=== PATIENT | male | born 1965 | race Caucasian/White ===

== ENCOUNTER 2021-12-09 07:51 | Outpatient (CLI) | payer OTHER, SELFPAY ==
--- NOTE | 2021-12-09 08:02 | ECG_ITS ---
Measurements Intervals [place] Rate: 61 P: 54 TX: 177 QRS: -28 QRSD: 112 T: 30 QT: 386 QTc: 391 Interpretive Statements SINUS RHYTHM BORDERLINE LEFT AXIS DEVIATION [QRS AXIS < -20] MODERATE INTRAVENTRICULAR CONDUCTION DELAY [110+ ms QRS DURATION] COMPARED TO ECG 11/07/2018 05:38:51 INTRAVENTRICULAR CONDUCTION DELAY NOW PRESENT Electronically Signed On 12-09-2021 14:03:39 CDT by Justice Fernandez M.D.
== END 2021-12-09 07:52 | disposition home or self-care (01) ==
PROVIDERS: PCP Family Medicine; Visit Provider Surgery
DX: K40.90 Unilateral inguinal hernia, without obstruction or gangrene, not specified as recurrent (principal); E78.00 Pure hypercholesterolemia, unspecified; Z01.818 Encounter for other preprocedural examination; R94.31 Abnormal electrocardiogram [ECG] [EKG]
CPT/HCPCS: 36415; 86850; 86900; 86901; 93005

== ENCOUNTER 2021-12-13 00:57 | Day surgery (SDC) | payer OTHER, SELFPAY ==
[2021-12-06 10:20] VITALS: BMI 27.0
--- NOTE | 2021-12-06 10:25 | PC.NURSE ---
Report to the Outpatient Waiting Room, entrance under the green pavilion located off [facility], at time 7:30 on date 12/13/21. Planned Procedure Time: 9:30. Time changes happen often and if your time is changed the preop area will call you the afternoon before. - You and your visitor will be asked to self-screen and do not enter if you have any COVID symptoms. - We encourage only one visitor and NO visitors under age 16 are allowed at this time. Your visitor will receive communication by the phone number that is given day of service. - The patient visitor is requested to social distance or may leave the building when not with patient due to restrictions. - A mask is required within the hospital. Patients may have clear liquids (water, carbonated beverages, clear teas, apple juice) until 3 hours prior to surgery with a maximum of 20 ounces. - No food from midnight until time of surgery Take the following medications with a SIP of water the morning of surgery: NONE Medications to discontinue per physician: N/A Date to take last dose: N/A Please no make-up, nail lithuanian, hairspray, perfume, deodorant, or body powder the day of surgery. No jewelry (including any body piercings) or valuables the day of surgery, leave them at home. Please take a shower or bath the night before, or the morning of, surgery with an antibacterial soap (HIBICLENS). Wear comfortable, loose fitting clothing. - Jewelry must be removed prior to entering the operating room. Rings and piercings that are not removed may be cut off. - The hospital will not accept responsibility for valuables. - Please leave all valuables, including medications, at home the day of surgery. If you are going home after surgery, a licensed bus van driver must drive you home. - NO public transportation without another adult. - We recommend that an adult stay with you for 24 hours following discharge. - We also recommend that you do not drive, make important decision, drink alcoholic beverages, or take any drugs that were not prescribed by your health care provider for at least 24 hours after your discharge time. Follow any additional instructions given to you from your surgeon. If you or anyone in your household have experienced Covid symptoms in the past week, please notify your surgeon or the nurse liaison at the phone number below for possible testing. Telephone instructions given to SANDIE ARGUELLES and asked if any additional questions and then verbalized understanding. Patient advised to call surgeon office or pre surgery nurse liaison [phone] if any additional questions.
--- NOTE | 2021-12-12 09:59 | WPDANESEPPF ---
Anes - Initial Pre Proc Eval Procedure: Operation Date: 12/13/21 09:30 Proposed Procedures p Laparoscopic Left Inguinal Hernia Repair with Mesh, Davinci Assisted - Brandon Catalan DO <Michael Alaniz MD - Last Filed: 12/16/21 10:45> Date/Time: 12/12/21 09:59 <Michael Alaniz MD - Last Filed: 12/16/21 10:45> Surgeon: Brandon Catalan DO <Michael Alaniz MD - Last Filed: 12/16/21 10:45> Pre Op Diagnosis: left inguinal hernia <Michael Alaniz MD - Last Filed: 12/16/21 10:45> Patient Data Age: 56 Gender: M Height: 1.8 m Weight: 88 kg <Michael Alaniz MD - Last Filed: 12/16/21 10:45> Allergies Allergy/AdvReac Type Severity Reaction Status Date / Time No Known Allergies Allergy Verified 12/13/21 08:11 <Michael Alaniz MD - Last Filed: 12/16/21 10:45> Home Medications Medication Instructions Recorded Confirmed Type atorvastatin 20 mg tablet (Lipitor) 20 mg PO DAILY 12/31/18 12/13/21 History fexofenadine-pseudoephedrine ER 1 tablet PO DAILY 12/31/18 12/13/21 History 180 mg-240 mg tablet,ext.release 24 hr (Madelin-D 24 Hour) finasteride 1 mg tablet 1 mg PO DAILY 05/10/20 12/13/21 History omeprazole 40 mg capsule,delayed 40 mg PO DAILY 05/10/20 12/13/21 History release hydrocodone 5 mg-acetaminophen 325 1 tablet PO Q4H PRN pain #10 tabs 12/13/21 Rx mg tablet <Michael Alaniz MD - Last Filed: 12/16/21 10:45> ECG: Date of Service: 12/09/21 Procedure(s): CA 12 lead EKG Accession Number(s): [id number] cc: ~ ? Measurements Intervals? [place]? Rate: ? 61 ? P:? 54 MD: ? 177? QRS:? -28 QRSD: ? 112? T:? 30 QT: ? 386? QTc:? 391? Interpretive Statements SINUS RHYTHM BORDERLINE LEFT AXIS DEVIATION [QRS AXIS < -20] MODERATE INTRAVENTRICULAR CONDUCTION DELAY [110+ ms QRS DURATION] COMPARED TO ECG 11/07/2018 05:38:51 INTRAVENTRICULAR CONDUCTION DELAY NOW PRESENT Electronically Signed On 12-09-2021 14:03:39 CDT by Justice Fernandez M.D. <Michael Alaniz MD - Last Filed: 12/16/21 10:45> Patient hx anesthesia problems: none <Khai Fernando MD - Last Filed: 12/13/21 08:39> Family hx anesthesia problems: none <Khai Fernando MD - Last Filed: 12/13/21 08:39> Results Review: All pre-operative results and documents have been reviewed as part of the pre-operative evaluation. <Michael Alaniz MD - Last Filed: 12/16/21 10:45> [facility] Past Medical History Medical History: Medical History BPH (benign prostatic hyperplasia) High cholesterol History of hemorrhoids ISABELLA (obstructive sleep apnea) Seasonal allergic rhinitis Vision loss <Michael Alaniz MD - Last Filed: 12/16/21 10:45> Surgical History Surgical History: Surgical History Amputated toe of right foot 4th digit H/O hand surgery H/O vasectomy S/P hemorrhoidectomy multiple hemorrhoid bandings S/P right inguinal hernia repair as a child <Michael Alaniz MD - Last Filed: 12/16/21 10:45> Family History Family History: Family History Mother Cancer Unknown Cancer Sibling Suicide and self-inflicted injury <Michael Alaniz MD - Last Filed: 12/16/21 10:45> Social History Social History: Social History Smoking status: Never smoker Alcohol intake: current Drinks per week: 21 Substance use: unknown Substance use type: does not use Gender identity (if verbalized by the patient): Male Spiritual care concerns: No <W
[2021-12-13] VITALS (12 sets, daily range): BP systolic 106–125; BP diastolic 69–83; PULSE 68–88; RESP 12–20; TEMP 36.1–36.7; O2SAT 95–100
[2021-12-13] MEDS: LACTATED RINGERS 1,000 ML 30 ML IV CONT ×3 (08:03→13:00)
[2021-12-13] MEDS: ACETAMINOPHEN 500 MG TABLET 1000 MG PO (08:03)
[2021-12-13] MEDS: KETOROLAC 15 MG/ML VIAL (*BKC) IV PUSH (08:03)
--- NOTE | 2021-12-13 09:05 | PM.IMHP ---
H&P: HPI History of Present Illness Date/Time: 12/13/21 09:05 Chief Complaint: Left inguinal hernia Narrative: This is a 56-year-old man who presents for left inguinal hernia repair. He denies any changes since last seen in the office. Review of Systems Review of Systems: All systems reviewed & are unremarkable except as noted in HPI and below Constitutional: Constitutional: Denies chills, Denies fever(s), Denies headache(s) and Denies weight loss Eyes: Eyes: Denies change in vision ENT: Denies dizziness, Denies headache(s), Denies neck mass and Denies throat swelling Cardiovascular: Cardiovascular: Denies chest pain, Denies lightheadedness and Denies dyspnea Respiratory: Respiratory: Denies cough, Denies dyspnea and Denies wheezing Gastrointestinal: Gastrointestinal: Denies abdominal pain, Denies change in bowel habits, Denies nausea and Denies vomiting Genitourinary: Genitourinary: Denies hematuria and Denies dysuria Musculoskeletal: Musculoskeletal: Reports as per HPI Integumentary/Breasts: Skin/Breast: Reports as per HPI Neurologic: Denies dizziness and Denies headache(s) Allergic/Immunologic: Allergic/Immunologic: Denies throat swelling and Denies wheezing PMFSH Past Medical History Medical History BPH (benign prostatic hyperplasia) High cholesterol History of hemorrhoids ISABELLA (obstructive sleep apnea) Seasonal allergic rhinitis Vision loss Surgical History Surgical History Amputated toe of right foot 4th digit H/O hand surgery H/O vasectomy S/P hemorrhoidectomy multiple hemorrhoid bandings S/P right inguinal hernia repair as a child Family History Family History Mother Cancer Unknown Cancer Sibling Suicide and self-inflicted injury Social History Social History Smoking status: Never smoker Alcohol intake: current Drinks per week: 21 Substance use: unknown Substance use type: does not use Living arrangements: with family Gender identity (if verbalized by the patient): Male Spiritual care concerns: No Meds Home Medications and Allergies Home Medications Medication Instructions Recorded Confirmed Type atorvastatin 20 mg tablet (Lipitor) 20 mg PO DAILY 12/31/18 12/13/21 History fexofenadine-pseudoephedrine ER 1 tablet PO DAILY 12/31/18 12/13/21 History 180 mg-240 mg tablet,ext.release 24 hr (Madelin-D 24 Hour) finasteride 1 mg tablet 1 mg PO DAILY 05/10/20 12/13/21 History omeprazole 40 mg capsule,delayed 40 mg PO DAILY 05/10/20 12/13/21 History release Allergies Allergy/AdvReac Type Severity Reaction Status Date / Time No Known Allergies Allergy Verified 12/13/21 08:11 Vital Signs Vital Signs - 24 hr 12/13/21 07:42 Temperature 36.1 C L Pulse Rate 68 Respiratory Rate 16 Blood Pressure 107/70 Pulse Oximetry 97 Oxygen Delivery Room Air Exam Const: General: no acute distress and alert Orientation/consciousness: patient oriented x3 HENMT: Head: normocephalic and atraumatic Ears: hearing grossly normal bilaterally Face/Nose/Sinus: Normal nares present Mouth: Yes Normal oral and palatal mucosa present Eyes: Periorbital: periorbital findings normal Sclera: sclerae normal EOM: EOMs intact bilaterally Neck: Neck: normal visual inspection, no lymphadenopathy and trachea midline Chest: Chest palpation & inspection: normal inspection of the chest Resp: Effort & Inspection: normal respiratory effort Auscultation: clear to auscultation bilaterally Cardio: Jugular venous distension: no JVD Rate: regular rate Rhythm: regular rhythm Heart sounds: S1 normal heart sound present and S2 normal heart sound present Peripheral pulses: Peripheral pulses 2+ throughout GI: Inspection: normal to inspection GI Palp: Yes
--- NOTE | 2021-12-13 09:07 | WPDHPUPDATE1 ---
History and Physical Update Update Date/Time: 12/13/21 09:07 History and Physical has been reviewed, including an updated exam of the patient. There are NO changes in the patient's condition. Risks, benefits, and alternatives have been discussed and questions answered. Patient agrees to proceed with procedure.
[2021-12-13] MEDS: ceFAZolin 2 GM/D5W 50 ML 2 GM/50 ML BAG IVPB (09:29)
[2021-12-13] MEDS: BUPIVACAINE/EPINEPHRINE 0.25% 50 ML VIAL 30 ML INFILTRATE (09:57)
--- NOTE | 2021-12-13 10:46 | W.PM.PROC2 ---
Procedure Note - Detailed Date of Procedure 12/13/21 Pre-op Diagnosis left inguinal hernia Post-op Diagnosis Same (Indirect left inguinal hernia) Procedure Performed Laparoscopic left inguinal hernia repair with mesh, da Edenilson assisted Surgeon Brandon Catalan DO Anesthesia General and Local (0.5% bupivacaine with epinephrine) Indications This is a 48-year-old man who presents with a left groin bulge that was noticed about 2 months ago by the patient. He has some occasional pain with this but is typically able to reduce the hernia. He was found have a reducible left inguinal hernia on physical exam. Discussions were made with the patient about treatment options and decision was made to proceed with robotic assisted laparoscopic left inguinal hernia repair with mesh. Findings Laparoscopic left inguinal hernia repair was performed. The patient was found to have an indirect left inguinal hernia. The sigmoid colon was going up near the edge of the hernia defect. There was no sign of a hernia on the right side. A robotic transabdominal preperitoneal approach was utilized for repair of the left inguinal hernia. A large left Bard 3DMax mid mesh was placed overlying the entire left myopectineal orifice. No specimens were obtained for pathology. Description of Procedure Procedure as well as risks, benefits, and alternatives were discussed with the patient. Written consent was obtained and placed in chart prior to procedure. Patient was brought back to surgical suite. He was placed supine on operating table. Time-out was done to confirm patient and procedure. He was then intubated by Anesthesia Department. His abdomen was prepped and draped in sterile fashion using chlorhexidine prep. 0.5% bupivacaine with epinephrine was infiltrated at each location for incision. An 8 mm incision was made in the left lateral abdomen, and a 5 mm Optiview trocar was advanced through the abdominal layers under direct visualization. Once inside the abdominal cavity, carbon dioxide insufflation was used to create a pneumoperitoneum. A camera was inserted and the abdominal cavity was inspected. The patient was placed in slight Trendelenburg position. An 8 millimeter incision was made on the right lateral abdomen and an 8 millimeter trocar was inserted under direct visualization. Another 8 millimeter incision was made just superior to the umbilicus and an 8 millimeter trocar was inserted under direct visualization. The 5 mm port was then removed and this was replaced with another 8 mm robotic port. The robotic arms were brought up to the patient's bedside and secured to the ports. The camera and instruments were inserted. I then moved over to the robotic console and took control of the camera and instruments. After careful inspection of the abdominal cavity, I began scoring the peritoneum along the left lower quadrant using scissors with electrocautery. The preperitoneal plane was entered and this was carefully dissected caudally along the inferior epigastric vessels. Careful dissection with scissors with electrocautery and blunt dissection was used to continue this dissection. I dissected far enough laterally to allow for mesh placement, and also dissected medially to identify the pubic arch and Jad's ligament. The hernia sac was identified and carefully dissected posteriorly. The cord contents were also identified and the peritoneum was carefully dissected far enough posteriorly to allow for mesh placement. Once an adequate pocket was created, I then placed the mesh within the preperitoneal pocket and carefully unfolded it. The mesh was centered on the hernia defect with adequate overlap circumferentially. The inferior edge of the mesh was inspected to ensure that it was far enough away from the peritoneal edge. The mesh appeared in proper position overlying the entire myopectineal orifice. The mesh was secured using 3-0 Vicryl simple interrupted sutures in Jad's li
[2021-12-13] MEDS: ONDANSETRON INJ 4 MG/2 ML VIAL IV PUSH (11:50)
[2021-12-13] MEDS: SCOPOLAMINE 1.5 MG PATCH TRANSDERM (12:43)
[2021-12-13] MEDS: diphenhydrAMINE HCl INJ 50 MG/ML VIAL 25 MG IV PUSH (12:43)
== END 2021-12-13 14:00 | disposition home or self-care (01) ==
PROVIDERS: PCP Family Medicine; Visit Provider Surgery
PROC: 8E0Y4CZ Robotic Assisted Procedure of Lower Extremity, Percutaneous Endoscopic Approach (ICD-10-PCS; CPT 49650; principal; 2021-12-13 09:30)
DX: K40.90 Unilateral inguinal hernia, without obstruction or gangrene, not specified as recurrent (principal); E78.00 Pure hypercholesterolemia, unspecified; N40.0 Benign prostatic hyperplasia without lower urinary tract symptoms; G47.00 Insomnia, unspecified
CPT/HCPCS: 49650; S2900; A9270; C1781; J0690; J1100; J1170; J1200; J1885; J2250; J2405; J2704; J2710; J3010; J7120